=== PATIENT | female | born 1940 | race Caucasian/White ===

== ENCOUNTER 2018-01-30 10:04 | Emergency (ER) | payer MEDICARE ==
[~2018-01-30] VITALS: Ht 162.6 cm; Wt 63.6 kg
[~2018-01-30 10:04] MED LIST: ALENDRONATE70 MG PO; AMANTADINE100 MG PO; AVELOX400 MG PO; FLUARIX QUADRIV1 IN1 IM; FOSAMAX PLUS PO; FOSAMAX70 MG PO; LEVOFLOXACIN750 MG PO; MERREM1 GM IV; MUCINEX D1 TAB PO; NO MEDS; ROBITUSSIN AC10 ML PO; ROBITUSSIN COUGH/COL PO
[2018-01-30 11:30] VITALS: BP 128/59
== END 2018-01-30 11:30 | disposition home or self-care (01) ==
LOC: ED 10:04
DX: S30.0XXA Contusion of lower back and pelvis, initial encounter (principal); J44.9 Chronic obstructive pulmonary disease, unspecified; M19.90 Unspecified osteoarthritis, unspecified site; F17.210 Nicotine dependence, cigarettes, uncomplicated; W01.0XXA Fall on same level from slipping, tripping and stumbling without subsequent striking against object, initial encounter

== ENCOUNTER 2018-02-16 09:42 | Observation (INO) | payer MEDICARE ==
[~2018-02-16] VITALS: Ht 162.6 cm; Wt 66.7 kg
--- NOTE | 2018-02-16 09:48 | NUR ---
PT TO ROOM VIA WC
--- NOTE | 2018-02-16 10:20 | NUR ---
Physical therapy @ bedside.
[2018-02-16 10:24] LABS: HEMATOCRIT 39.9 % (37.0-47.0); IMMATURE GRANULOCYTES 0.4 % (0.0-5.0); MEAN CELL VOLUME 96.6 fL CALC (80.0-100.0); MEAN CORPUSCULAR HGB 31.5 pG CALC (26.0-32.0); MEAN CORPUSCULAR HGB CONC 32.6 g/L CALC (32.0-36.0); NEUT# 5.53 thou/uL (2.00-7.15); RED BLOOD COUNT 4.13 mill/uL (4.20-5.60); RED CELL DISTRI WIDTH 12.8 % (11.5-15.5)
[2018-02-16 10:58] LABS: ANION GAP 15 (6-22 (CALC)); BUN 14 mg/dL (8-23); BUN/CREATININE RATIO 15 (12-20 (CALC)); CARBON DIOXIDE 24 mmol/l (22-30); CHLORIDE 106 mmol/l (95-108); CREATININE 0.9 mg/dL (0.5-1.0); GFR 60 ML/MIN (>=60 (CALC)); GFR FOR AFR.AMER. > 60 ML/MIN (>=60 (CALC)); POTASSIUM 3.8 mmol/l (3.5-5.1); SODIUM 141 mmol/l (137-146)
--- NOTE | 2018-02-16 11:18 | NUR ---
Pt. lying in bed awake and alert. Skin w/p/d. Resp. easy, unlabored. No distress noted.
--- NOTE | 2018-02-16 12:30 | NUR ---
Report given to Shayna Pope.
--- NOTE | 2018-02-16 12:45 | NUR ---
IV started to Rt wrist by Shayna Schwartz. Pt. tolerated well.
--- NOTE | 2018-02-16 12:49 | NUR ---
Pt. ate 40% of lunch. Tolerated well.
--- NOTE | 2018-02-16 12:56 | NUR ---
Admission Note Report Given to: SUSAN FUENTES Transported by: Wheelchair X Stretcher Transported with: X Nurse Transporter X Patent IV O2 Speech Assistant Pt. left ED via stretcher awake and alert. No distress noted.
--- NOTE | 2018-02-16 13:00 | NUR ---
PT. ARRIVED TO FLOOR VIA STRETCHER ACCOMPANIED BY SUSAN DUENAS. PT TRANSFERED TO BED BY PULL-OVER. PT REPORTS 10 ON SCALE OF 0-10 TO LOWER BACK AND COCCYX. PLAN OF CARE DISCUSSED. REPORTING OF CONCERNS ENCOURAGED. PT ORIENTED TO ROOM AND EQUIPMENT. PT REPORTS FALL 3 WEEKS AGO THAT PRECIPITATED PAIN. FALL PRECAUTIONS REINFORCED. PT INSTRUCTED TO CALL FOR ASSIST OUT OF BED. CALL LIGHT REVIEWED AND IN REACH. PT REPORTS LAST BM THIS AM. LUNGS CLEAR. NO SOB. NO CHEST PAIN. ALERT AND ORIENTED.
[2018-02-16 13:05] VITALS: BP 136/40
--- NOTE | 2018-02-16 14:30 | NUR ---
MORPHINE IV ADMINISTERED FOR SEVERE LOWER BACK/COCCYX PAIN. PT REPORTS PAIN IS SLIGHTLY IMPROVED. UP TO BSC, STAND-PIVOT. ACTIVITY TOLERATED. SOB W/ EXERTION NOTED. DR. ANGEL IN TO SEE PT NOW. PLAN OF CARE UPDATED.
--- NOTE | 2018-02-16 16:14 | NUR ---
PT'S AT DESK. REPORTS FRUSTRATION. STATES "I DONT EVEN KNOW WHY SHES HERE. YALL ARENT DOING ANYTHING." PLAN OF CARE EXPLAINED. CALL PLACED TO PHYSICAL THERAPY TO CONFIRM THEIR VISIT TO PT. TODAY.
--- NOTE | 2018-02-16 18:33 | NUR ---
PT REPORTS CONSTANT PAIN TO LOWER BACK, MOSTLY UNCHANGED BY PAIN MEDICATION. REPOSITIONING ENCOURAGED.
[2018-02-16 20:10] VITALS: BP 127/58
--- NOTE | 2018-02-16 21:49 | NUR ---
PT MEDICATED FOR PAIN IN LOWER BACK REPORTED 8/10 WHEN LAYING STILL. PT ASSESSED, INSPIRATORY WHEEZING THROUGHOUT LUNG JOHNSON. ABD SOFT NON-TENDER. NO S/S OF DISTRESS AND PT DENIES ANY OTHER NEEDS. SKIN AND NEURO'S INTACT. POC DISCUSSED W/PT AND ENCOURAGED HER TO CALL IF ANY OTHER NEEDS ARISE.
--- NOTE | 2018-02-17 00:10 | NUR ---
PT APPEARS TO BE SLEEPING AT THIS TIME. NO S/S OF DISTRESS NOTED. CALL LIGHT IS W/IN REACH.
--- NOTE | 2018-02-17 03:25 | NUR ---
PT IS SLEEPING AT THIS TIME. NO S/S OF DISTRESS NOTED. PT AWOKE TO MY ENTERING THE ROOM AND DENIED NEED FOR PAIN MEDICATION AT THIS TIME. CALL LIGHT AT SIDE AND PT ENCOURAGEDD TO CALL NEEDS ARISE.
[2018-02-17 04:21] VITALS: BP 107/49
[2018-02-17 05:50] LABS: HEMATOCRIT 35.8 % (37.0-47.0); HEMOGLOBIN 12.2 g/dl (12.0-16.0); IMMATURE GRANULOCYTES 0.4 % (0.0-5.0); MEAN CORPUSCULAR HGB CONC 34.1 g/L CALC (32.0-36.0); NEUT# 4.88 thou/uL (2.00-7.15); RED BLOOD COUNT 3.81 mill/uL (4.20-5.60); RED CELL DISTRI WIDTH 12.7 % (11.5-15.5)
[2018-02-17 06:01] LABS: ALBUMIN 3.5 g/dL (3.2-5.0); ANION GAP 12 (6-22 (CALC)); BILIRUBIN, TOTAL 0.6 mg/dL (0.0-1.4); BUN 14 mg/dL (8-23); BUN/CREATININE RATIO 18 (12-20 (CALC)); CARBON DIOXIDE 23 mmol/l (22-30); CHLORIDE 109 mmol/l (95-108); CREATININE 0.8 mg/dL (0.5-1.0); GFR > 60 ML/MIN (>=60 (CALC)); GFR FOR AFR.AMER. > 60 ML/MIN (>=60 (CALC)); MAGNESIUM 1.9 mg/dL (1.6-2.3); POTASSIUM 4.4 mmol/l (3.5-5.1); SGOT/AST 19 u/l (9-36); SODIUM 139 mmol/l (137-146)
[2018-02-17 06:05] LABS: ALKALINE PHOSPHATASE 91 u/l (38-126)
--- NOTE | 2018-02-17 06:29 | NUR ---
PT IS AWAKE, BUT APPEARS CALM IN BED W/LIGHTS OUT. SHE REPORTS PAIN IN BACK WHILE BEING STILL 5/10 ON PAIN SCALE. I OFFERED PAIN MEDICATION OPTIONS, BUT SHE REFUSED ANY MEDICATIONS AT THIS TIME. I ENCOURAGED HER TO CALL IF SHE CHANGED HER MIND OR IF IT CONTINUED TO GET WORSE. PT EDUCATED ON PAIN MANAGEMENT. CALL LIGHT IS AT BEDSIDE. NO OTHER S/O DISTRESS NOTED. LIGHTS AND TV OFF
[2018-02-17 07:30] VITALS: BP 122/52
--- NOTE | 2018-02-17 07:35 | NUR ---
PT ALERT AND ORIENTED RESTING IN BED, AM ASSESSMENT COMPLETED; SEE INTERVENTIONS, SKIN WARM DRY AND INTACT, PT STATES SHE FELL 2 WEEKS AGO AND HAS CONTINUED TO HAVE PAIN, STAETS WHEN I DON'T MOVE ITS MINIMAL, COMFORT MEASURES PROVIDED, IV ACCESS INTACT IN R WRIST, ENCOURGAED TO CALL FOR ANY NEEDED ASSISTANCE, WILL CONTINUE TO MONITOR.
--- NOTE | 2018-02-17 11:00 | NUR ---
MEDICTAED WITH PERCOCET ORDERED WILL MONITOR TOLERANCE AND EFFICACY, SPOUSE AT BEDSIDE, EDUCATED REGARDING PAIN CONTROL AND COMFORT MEASURES THAT CAN BE PERFORMED AT HOME PT VERBALIZES UNDERSTANDING, WILL CONTINUE TO MONITOR.
--- NOTE | 2018-02-17 11:50 | NUR ---
PT TOLERATED THERAPY FAIRLY WELL AND STATES GOOD RELIEF FROM PAIN WTIH PERCOCET, CALL RDZ WITHIN REACH.
--- NOTE | 2018-02-17 12:16 | NUR ---
PT WAS SEEN FOR GT AND EX. SHE WAS ABLE TO SIT UP ON BED FROM SUPINE WITH MODIFIED INDEPENDENCE. PT WAS INSTRUCTED TO TAKE HER TIME IN SITTING POSITION BEFORE ASSUMING STANDING. SHE THEN STOOD UP WITH VERBAL CUES ON PUSHING SELF UP ON BED. IMMEDIATE STANDING BALANCE WAS GOOD. SHE AMBULATED WITH RW AND CGA IN THE HALLWAY ~100 FT. X 2. PT WAS INSTRUCTED ON FALL PREVENTION MEASURES. PT RETURNED TO ROOM AND SAT ON THE RECLINER. EXERCISES WERE DISCUSSED. EX. HANDOUT TO FOLLOW. LEFT PT WITH CALL RDZ BESIDE HER, IN THE ROOM WITH HER.
--- NOTE | 2018-02-17 12:40 | NUR ---
AND MAJOR ALMEIDA IN TO SEE PATIENT, PLAN OF CARE DISCUSSED INCLUDING POTENTIAL D/C TODAY. SPOUSE REMAINS AT BEDSIDE
[2018-02-17] MEDS ORDERED: LORTAB5 PO (13:26)
[2018-02-17] MEDS ORDERED: TRAMADOL HYDROC50 MG PO (13:26)
[2018-02-17] MEDS ORDERED: PROTONIX40 M2 PO (13:27)
[2018-02-17] MEDS ORDERED: IBUPROFEN600 MG PO (13:29)
--- NOTE | 2018-02-17 14:24 | NUR ---
Discharge instructions given. Patient verbalizes understanding of same. Discharged in stable condition via Wheelchair to Home with spouse. All belongings sent with pt. SCRIPTS FOR ULTRAM, LORTAB, PROTONIX AND IBUPROFEN GIEVN TO PATIENT.
== END 2018-02-17 14:24 | disposition home health service (06) ==
LOC: ED 09:42 → ED-I 11:06 → ED 12:08 → MS2 12:09
PROVIDERS: Family Medicine; ADMIT Internal Medicine Nephrology; ATTEND Internal Medicine Nephrology
PROC: 3E0234Z Introduction of Serum, Toxoid and Vaccine into Muscle, Percutaneous Approach (ICD-10-PCS; principal; 2018-02-17)
DX: S30.0XXA Contusion of lower back and pelvis, initial encounter (principal); J44.0 Chronic obstructive pulmonary disease with (acute) lower respiratory infection; J20.9 Acute bronchitis, unspecified; K57.30 Diverticulosis of large intestine without perforation or abscess without bleeding; M19.90 Unspecified osteoarthritis, unspecified site; F17.210 Nicotine dependence, cigarettes, uncomplicated; W18.30XA Fall on same level, unspecified, initial encounter; Y92.009 Unspecified place in unspecified non-institutional (private) residence as the place of occurrence of the external cause; Z23 Encounter for immunization; Z87.01 Personal history of pneumonia (recurrent)

== ENCOUNTER 2021-03-16 10:06 | Emergency (ER) | payer MEDICARE ==
[~2021-03-16] VITALS: Ht 162.6 cm; Wt 70.0 kg
[~2021-03-16 10:06] MED LIST changes: +IBUPROFEN600 MG PO; +LORTAB5 PO; +PROTONIX40 M2 PO; +TRAMADOL HYDROC50 MG PO
[2021-03-16 10:56] LABS: HEMATOCRIT 41.7 % (37.0-47.0); HEMOGLOBIN 13.4 g/dl (12.0-16.0); IMMATURE GRANULOCYTES 0.2 % (0.0-5.0); MEAN CELL VOLUME 100.5 fL CALC (80.0-100.0); MEAN CORPUSCULAR HGB 32.3 pG CALC (26.0-32.0); MEAN CORPUSCULAR HGB CONC 32.1 g/dL CAL (32.0-36.0); NEUT# 3.77 thou/uL (2.00-7.15); RED BLOOD COUNT 4.15 mill/uL (4.20-5.60); RED CELL DISTRI WIDTH 12.4 % (11.5-15.5)
[2021-03-16 11:22] LABS: INTERNATIONAL NORMALIZED RATIO 0.9 RATIO (0.7-1.3); PROTHROMBIN TIME 9.8 SECONDS (9.0-12.5)
[2021-03-16 11:24] LABS: ALBUMIN 4.2 g/dL (3.2-5.0); ALKALINE PHOSPHATASE 73 u/l (38-126); ANION GAP 11 (6-22 (CALC)); BILIRUBIN, TOTAL 0.6 mg/dL (0.0-1.4); BUN 19 mg/dL (8-23); BUN/CREATININE RATIO 17 (12-20 (CALC)); CARBON DIOXIDE 28 mmol/l (22-30); CHLORIDE 106 mmol/l (95-108); CREATININE 1.1 mg/dL (0.5-1.0); GFR 48 ML/MIN (>=60 (CALC)); GFR FOR AFR.AMER. 58 ML/MIN (>=60 (CALC)); POTASSIUM 4.8 mmol/l (3.5-5.1); SGOT/AST 27 u/l (9-36); SODIUM 140 mmol/l (137-146); TOTAL PROTEIN 7.3 g/dL (6.3-8.2)
[2021-03-16 14:18] VITALS: BP 141/70
== END 2021-03-16 14:18 | disposition short-term general hospital (02) ==
LOC: ED 10:06
PROVIDERS: Family Medicine
DX: G45.9 Transient cerebral ischemic attack, unspecified (principal); G30.9 Alzheimer's disease, unspecified; F02.80 Dementia in other diseases classified elsewhere, unspecified severity, without behavioral disturbance, psychotic disturbance, mood disturbance, and anxiety; J44.9 Chronic obstructive pulmonary disease, unspecified; F17.200 Nicotine dependence, unspecified, uncomplicated
CPT/HCPCS: Q9967